=== PATIENT | female | born 1945 | race Caucasian/White ===

== ENCOUNTER 2018-04-02 08:16 | Day surgery (SDC) | payer OTHER, MEDICARE ==
[2018-03-28 17:00] VITALS: BMI 25.6
[2018-04-02] MEDS ORDERED: PROPOFOL 20 ML ONE ×2 (09:13)
[2018-04-02 10:05] VITALS: PULSE 62
[2018-04-02 10:29] VITALS: BP 121/65; TEMP 98.1
== END 2018-04-02 10:32 | disposition home or self-care (01) ==
LOC: FASU-ENDO 08:16
PROVIDERS: ATTEND Internal Medicine Gastroenterology
PROC: 0DJD8ZZ Inspection of Lower Intestinal Tract, Via Natural or Artificial Opening Endoscopic (ICD-10-PCS; principal; 2018-04-02 09:27)
DX: Z12.11 Encounter for screening for malignant neoplasm of colon (principal); K57.30 Diverticulosis of large intestine without perforation or abscess without bleeding

== ENCOUNTER 2018-11-07 03:42 | Emergency (ER) | payer OTHER, MEDICARE ==
--- NOTE | 2018-11-07 03:53 | PDOC ---
History of Present Illness - General Chief Complaint: Constipation Stated Complaint: CONSTIPATION Time Seen by Provider: 11/07/18 03:44 History Source: Patient Exam Limitations: No Limitations - History of Present Illness Initial Comments: 11/07/18 03:53 This is a 73-year-old female who has been taking oxycodone for shoulder pain and now comes in complaining of constipation and no bowel movement 4 days. Patient otherwise is without complaints. Allergies: None Past Medical History: none Social history: Lives with family. No smoking. No alcohol. No illicit drugs. Surgical history: None General: No fevers or chills, no weakness, no weight loss HEENT: No change in vision. No sore throat,. No ear pain CardioVascular: no chest discomfort. No shortness of breath Respiratory:No cough, or wheezing. Gastrointestinal: no nausea, vomiting, diarrhea or constipation, No rectal bleeding Genitourinary: No dysuria, hematuria, or frequency Musculoskeletal: No joint or muscle pain or swelling Neurologic: No headache, vertigo, dizziness or loss of consciousness Psychiatric: nor depression Skin: No rashes or easy bruising Endocrine: no increased thirst or abnormal weight change Allergic: no skin or latex allergy All other systems reviewed and normal GENERAL: The patient is awake, alert, and fully oriented, in no acute distress. HEAD: Normal with no signs of trauma. EYES: Pupils equal, round and reactive to light, extraocular movements intact, sclera anicteric, conjunctiva clear. EXTREMITIES:atraumatic, Normal range of motion, no edema. Rectal: There is large amount of stool impacted in the rectal vault NEUROLOGICAL: Normal speech, normal gait. PSYCH: Normal mood, normal affect. SKIN: Warm, Dry, normal turgor, no rashes or lesions noted. Manual disimpaction performed with large amount of stool removed and saline enemas X2 then administered, post enemas patient had small bowel movement. Patient given a bottle of mag citrate and a prescription for MiraLAX into her pharmacy. Patient discharged home and will follow-up with her primary care doctor Past History - Past Medical History Allergies/Adverse Reactions: Allergies Allergy/AdvReac Type Severity Reaction Status Date / Time clindamycin Allergy Mild Rash Verified 04/02/18 08:33 Sulfa (Sulfonamide Allergy Mild Rash Verified 04/02/18 08:33 Antibiotics) Home Medications: Ambulatory Orders Alendronate Sodium/Vitamin D3 [Fosamax Plus D 70 mg-5,600 Iu vIT d] 1 each PO WEEKLY 03/28/18 Ascorbate Calcium/Bioflavonoid [Nancy-C 1,000 mg Tablet] 1,000 each PO DAILY Biotin 5 mg PO DAILY 03/28/18 Calcium Carbonate [Calcium] 1,000 mg PO DAILY 03/28/18 Diphenhydramine HCl [Sleep Aid] 25 mg PO HS 03/28/18 Krill Oil 500 mg PO DAILY 03/28/18 Latanoprost 0.005% Eye Drops [Xalatan 0.005% Eye Drops -] 0.005 drop OU DAILY Levothyroxine [Synthroid -] 88 mcg PO DAILY 03/28/18 Melatonin/Pyridoxine HCl (B6) [Melatonin 1 mg Tablet] 1 each PO HS 03/28/18 Multivit-Min/Folic Acid/Biotin [Hair, Skin and Nails Caplet] 1 cap PO DAILY Mv,Calcium,Min/Iron/Folic/Vitk [Multi For Her Tablet] 1 each PO DAILY 03/28/18 Rosuvastatin Calcium [Crestor] 20 mg PO DAILY 03/28/18 Vit D3-Vit K/Berberine/Hops [Ostera Tablet] 5,000 each PO DAILY 03/28/18 Vit E/Vit E Mx/Squal/Phytostrl [Mixed Tocotrienols 50 mg Sftgl] 400 mg PO DAILY 03/28/18 Polyethylene Glycol 3350 [Miralax (For Daily Use) -] 17 gm PO BID #1 bottle Anemia: No Asthma: No Cancer: No Cardiac Disorders: No (EKG December. STRESS TEST NORMAL) CVA: No COPD: No CHF: No Dementia: No Diabetes: No (PRE DIABETES DIET ONLY) GI Disorders: No Disorders: No HTN: No Hypercholesterolemia: Yes Liver Disease: No Seizures: No Thyroid Disease: Yes - Surgical History Abdominal Surgery: No Appendectomy: No Cardiac Surgery: No Cholecystectomy: No Lung Surgery: No Neurologic Surgery: No - Suicide/Smoking/Psychosocial Hx Smoking History: Former smoker Have you smoked in the past 12 months: No Number of Cigarettes Smoked Daily: 10 If you are a former smoker, when did you quit?: 2007 Hx Alcohol Use: Yes (3OZ OF VODKA EVERY NIGHT) Drug/Substance Use Hx: No (USED MARIJUANA 2 YEARS AGO) Substance Use Type: Alcohol Hx Substance Use Treatment: No *DC/Admit/Observation/Transfer Diagnosis at time of Disposition: Constipation Qualifiers: Constipation type: unspecified constipation type Qualified Code(s): K59.00 - Constipation, unspecified - Discharge Dispostion Disposition: HOME Condition at time of disposition: Stable Decision to Admit order: No - Prescriptions Prescriptions: Polyethylene Glycol 3350 [Miralax (For Daily Use) -] 17 gm PO BID #1 bottle - Referrals Referrals: Son Resendez MD, [Primary Care Provider] - - Patient Instructions Additional Instructions: In the morning Drink the bottle of liquid we gave you. take miralax, as directed on the perscription two times a day as long as you are on the oxycodone. Return to the emergency department immediately with ANY new, persistent or worsening symptoms. Continue any medications as previously prescribed by your physician. You should follow up with your primary doctor as soon as possible regarding today's emergency department visit. . Please make sure your doctor reviews the results of your emergency evaluation. Thank you for coming to the Emergency Department today for your care. It was a pleasure to see you today. Please note that your evaluation is INCOMPLETE until you follow-up with your doctor. - Post Discharge Activity
[2018-11-07] MEDS ORDERED: SODIUM PHOSPHATE/NA BIPHOS 133 ML ENEMA PR ONE (03:59)
[2018-11-07] MEDS ORDERED: MINERAL OIL ENEMA 133 ML ENEMA PR ONE (03:59)
[2018-11-07] MEDS ORDERED: MAGNESIUM CITRATE 300 ML BOTTLE PO ONE ×2 (04:08→04:11)
[2018-11-07 04:10] VITALS: BP 158/92; PULSE 90; TEMP 99.1; BMI 31.1
[2018-11-07] MEDS ORDERED: MAGNESIUM CITRATE 300 ML BOTTLE ONE (04:10)
== END 2018-11-07 04:44 | disposition home or self-care (01) ==
LOC: FER 03:42
DX: K59.00 Constipation, unspecified (principal); E78.00 Pure hypercholesterolemia, unspecified; Z87.891 Personal history of nicotine dependence; Z88.1 Allergy status to other antibiotic agents; Z88.2 Allergy status to sulfonamides
CPT/HCPCS: 99282-25

== ENCOUNTER 2024-10-01 12:05 | Emergency (ER) | payer OTHER, MEDICARE ==
[2024-10-01 13:43] VITALS: BP 150/70; PULSE 73; RESP 20; TEMP 98.1; BMI 25.6
[2024-10-01] MEDS ORDERED: DIPHTH,PERTUSS(ACELL),TET 0.5 ML DISP.SYRIN IM ONE (14:16)
[2024-10-01] MEDS: DIPHTH,PERTUSS(ACELL),TET 0.5 ML DISP.SYRIN IM ONE (14:19)
== END 2024-10-01 14:21 | disposition home or self-care (01) ==
LOC: FER 12:05
PROC: 3E0234Z Introduction of Serum, Toxoid and Vaccine into Muscle, Percutaneous Approach (ICD-10-PCS; principal; 2024-10-01)
DX: S61.210A Laceration without foreign body of right index finger without damage to nail, initial encounter (principal); S61.212A Laceration without foreign body of right middle finger without damage to nail, initial encounter; W25.XXXA Contact with sharp glass, initial encounter; Z23 Encounter for immunization
CPT/HCPCS: 73130-TC-RT-FY; 90471; 90715; 99284-25